=== PATIENT | female | born 1970 | race Caucasian/White ===

== ENCOUNTER 2016-11-30 17:59 | Emergency (ER) | payer MEDICAID ==
[~2016-11-30 17:59] MED LIST: ESTRADERM 0.00.05 MG TD; IBUPROFEN600 MG PO; PERCOCET 10/3251 TA1 PO
== END 2016-11-30 20:40 | disposition left against medical advice (07) ==
LOC: D.ER 17:59
DX: R07.81 Pleurodynia (principal); I10 Essential (primary) hypertension

== ENCOUNTER 2016-12-01 06:58 | Emergency (ER) | payer MEDICAID | END 2016-12-01 08:34 | disposition home or self-care (01) | LOC: D.ER 06:58 | DX: S22.32XA Fracture of one rib, left side, initial encounter for closed fracture (principal); W06.XXXA Fall from bed, initial encounter; Y93.89 Activity, other specified; Y92.013 Bedroom of single-family (private) house as the place of occurrence of the external cause; I10 Essential (primary) hypertension; F17.200 Nicotine dependence, unspecified, uncomplicated ==

== ENCOUNTER 2018-03-12 15:17 | Emergency (ER) | payer MEDICAID ==
[~2018-03-12] VITALS: Ht 158.8 cm; Wt 72.6 kg
[2018-03-12 15:20] VITALS: Ht 158.8 cm; Wt 72.6 kg
[2018-03-12] MEDS ORDERED: CLEOCIN HCL300 MG PO (16:29)
[2018-03-12] MEDS ORDERED: TORADOL10 MG PO (16:29)
[2018-03-12 18:06] VITALS: BP 145/101
== END 2018-03-12 18:04 | disposition home or self-care (01) ==
LOC: D.ER 15:17
DX: L03.113 Cellulitis of right upper limb (principal); M54.16 Radiculopathy, lumbar region; Z86.19 Personal history of other infectious and parasitic diseases; F17.200 Nicotine dependence, unspecified, uncomplicated

== ENCOUNTER → 2018-05-02 10:07 | Outpatient (CLI) | payer MEDICAID ==
[~2018-05-02 10:07] MED LIST changes: +CLEOCIN HCL300 MG PO; +TORADOL10 MG PO
== END | disposition home or self-care (01) ==
LOC: D.US 09:00
DX: D17.24 Benign lipomatous neoplasm of skin and subcutaneous tissue of left leg (principal)

== ENCOUNTER 2019-03-16 23:03 | Emergency (ER) | payer MEDICAID ==
[~2019-03-16] VITALS: Ht 158.8 cm; Wt 94.5 kg
[2019-03-16 23:09] VITALS: Ht 158.8 cm; Wt 94.5 kg
[2019-03-16] MEDS ORDERED: GABAPENTIN100 MG PO (23:10)
[2019-03-16] MEDS ORDERED: SYNTHROID75 MCG PO (23:10)
[2019-03-17] MEDS ORDERED: ULTRAM50 MG PO (00:05)
[2019-03-17 00:32] VITALS: BP 128/90
== END 2019-03-17 00:32 | disposition home or self-care (01) ==
LOC: D.ER 23:03
DX: S20.212A Contusion of left front wall of thorax, initial encounter (principal); V29.9XXA Motorcycle rider (driver) (passenger) injured in unspecified traffic accident, initial encounter; Y93.89 Activity, other specified; Y92.410 Unspecified street and highway as the place of occurrence of the external cause

== ENCOUNTER 2019-03-28 09:05 | Day surgery (SDC) | payer MEDICAID ==
[2019-03-26 15:58] LABS: HEMOGLOBIN 14.9 g/dL (12-16); MCH 31.9 pg (26.0-34.0); MCHC 34.7 g/dL (31.0-37.0); MCV 92.1 fL (80.0-100.0); RBC 4.67 10x6/uL (4.00-5.40); RDW 12.7 % (11.5-14.5); WBC 7.5 10x3/uL (4.8-10.8)
[2019-03-26 16:11] LABS: APTT 28.5 SECONDS (22.8-39.4); INR 0.95 (0.85-1.17); PROTIME 12.2 SECONDS (11.6-15.0)
[2019-03-26 16:36] LABS: ALBUMIN 3.2 g/dL (3.4-5.0); ALKALINE PHOSPHATASE 76 U/L (46-116); ALT (SGPT) 14 U/L (10-68); BILIRUBIN - TOTAL 0.21 mg/dL (0.2-1.3); CALC OSMOLALITY 283 mosm/kg (275-300); CARBON DIOXIDE 27.1 mmol/L (21.0-32.0); CHLORIDE - SERUM 106 mmol/L (98-107); CREATININE - SERUM 0.8 mg/dL (0.6-1.3); GLUCOSE 97 mg/dL (74-106); PROTEIN - SERUM 6.9 g/dL (6.4-8.2); SODIUM 142 mmol/L (136-145); UREA NITROGEN 16 mg/dL (7-18); eGFR NON AFRICAN AMERICAN 81 mL/min (90-120)
[~2019-03-28] VITALS: Ht 158.8 cm; Wt 94.5 kg
[~2019-03-28 09:05] MED LIST changes: +GABAPENTIN100 MG PO; +SYNTHROID75 MCG PO; +ULTRAM50 MG PO
[2019-03-28 09:48] VITALS: BP 136/86; Ht 158.8 cm; Wt 94.5 kg
[2019-03-28] MEDS ORDERED: HYDROCODON-ACE1 EA10 PO (11:29)
--- NOTE | 2019-03-28 12:49 | OP ---
PATIENT NAME: ALYSHA CRAWFORD MEDICAL RECORD: [id number] :68 LOCATION:[facility]OPS ADMISSION DATE: SURGEON: CHIKI WASHINGTON MD DATE OF OPERATION: 03/28/2019 PREOPERATIVE DIAGNOSIS: Medial meniscus tear of the left knee. POSTOPERATIVE DIAGNOSIS: Medial meniscus tear of the left knee. PROCEDURE: Arthroscopic partial medial meniscectomy. SURGEON: Chiki Washington MD ANESTHESIA: General. INTRAOPERATIVE COMPLICATIONS: None. SUMMARY OF PATHOLOGIC FINDINGS: A complex tear of the posterior horn of medial meniscus consistent with the MRI as well as the preoperative examination. OPERATIVE SUMMARY IN DETAIL: After obtaining the appropriate preoperative orthopedic surgery consent as well as anesthetic consultation, evaluation and clearance, the patient was brought to the operating room and placed on the operating table in supine position. After general laryngeal mask was administered, tourniquet was placed on the proximal aspect of the left lower extremity. Left lower extremity was prepped and draped in routine sterile fashion. The leg was elevated and exsanguinated, tourniquet inflated to 350 mmHg. Routine inferolateral portal was established followed by superomedial portal and inferomedial portal. Diagnostic arthroscopy revealed the above findings. Attention was turned to the medial meniscus with arthroscopic meniscotome as well as an arthroscopic resector were used in combination to debride the meniscal tear back to stable meniscal elements. The patient had very good residual meniscus without evidence of complete defect. 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 Having completed this, the knee was insufflated with 30 mL of 0.25% Marcaine with epinephrine and 80 mg of Depo-Medrol. Arthroscopy portals and closed in routine interrupted fashion using 4-0 Prolene. Sterile dressings were applied. The patient was awakened and taken to the recovery room in stable condition. All final needle and sponge counts were correct. TRANSINT:[id number] Voice Confirmation ID: [id number] DOCUMENT ID: [id number] CHIKI WASHINGTON MD at 1249 CC: [id number] DICTATION DATE: 03/28/19 1208 INDUSTRIAL PHARMACIST: 03/28/19 [address] [place] [address]
--- NOTE | 2019-03-28 12:52 | NUR ---
UP TO BATHROOM WITH ASSIST. ABLE TO URINATE WITHOUT DIFFICULTY. WILL GIVE HYDROCODONE FOR PAIN. SITTING UP IN BED EATING. VOICES NO OTHER NEEDS.
--- NOTE | 2019-03-28 13:56 | NUR ---
1340 ALL DC CRITERIA MET. TAKEN DOWN VIA W/C AND ASSISTED TO CAR WITH FAMILY. ADVISED TO CALL OR COME BACK IF ANY PROBLEMS. VOICES UNDERSTANDING.
== END 2019-03-28 13:40 | disposition home or self-care (01) ==
LOC: D.OPS 09:05 → D.PAN 13:10 → D.OPS 13:10 → D.PAN 13:45 → D.OPS 13:45
PROVIDERS: Anesthesiology; ATTEND Orthopaedic Surgery
DX: S83.232A Complex tear of medial meniscus, current injury, left knee, initial encounter (principal); Z01.812 Encounter for preprocedural laboratory examination